=== PATIENT | male | born 1965 | race Caucasian/White ===

== ENCOUNTER 2017-09-29 09:53 | Outpatient (RCR) | payer MEDICAID, SELFPAY ==
--- NOTE | 2017-09-22 10:11 | NT_ITS ---
NON TREATMENT NOTE: 09/22/17 Patient called in to cancel today's appointment due to lack of a ride.
--- NOTE | 2017-09-29 10:38 | PTDS_ITS ---
Date: 09/29/17 Referring: Gage Thrasher MD Diagnosis: Back, shoulder, neck, and knee pain Subjective: Patient states that although he still is battling symptoms of neck pain, back pain, and shoulder pain that he feels like he has gotten his life back. He is back to working [employer] and making plans for the future. Objective: Treatment: Self care training (x1): Patient was guided through gentle ROM assessment utilizing the SFMA top tier assessment. He was noted to still have dysfunctional painful pattern through the cervical spine in all planes, Upper extremity 1 and upper extremity 2. Dysfunctional non painful patterns noted with Multisegmental rotation, multisegmental extension, and arms down deep squat. Patient was advised to continue to pursue his work advancement but be mindful of body cues that tell him to take a break. It is better to conserve and preserve energy and stamina then to follow a no pain no gain philosophy. Patient should continue to work on smoking cessation and stay well hydrated. Treatment time: 15 minutes of direct patient care. Assessment: Patient is doing incredibly well from his start point. He is back to [employer] work, is working on getting back to driving and is encouraged for the future for the first time in almost 2 years since his injury. He has completed all Physical therapy related goals at this time, and no further conservative Physical therapy treatment is indicated. Plan: Patient should continue to remain vigilant in his HEP. Discharge from formal Physical therapy at this point in time. cc. Gage Thrasher MD
== END 2017-10-09 23:59 | disposition home or self-care (01) ==
LOC: PT 09:53
PROVIDERS: PCP Family Medicine; Referring Provider Family Medicine; Visit Provider Family Medicine
DX: R29.898 Other symptoms and signs involving the musculoskeletal system (principal); G89.29 Other chronic pain; M54.9 Dorsalgia, unspecified; M25.512 Pain in left shoulder
CPT/HCPCS: 97535

== ENCOUNTER 2023-12-29 12:28 | Emergency (ER) | payer SELFPAY ==
[2023-12-29 12:32] VITALS: BP 148/101; PULSE 81; RESP 18; TEMP 36.8; O2SAT 98
[2023-12-29 13:33] VITALS: BP 165/112; PULSE 93; RESP 16; TEMP 36.8; O2SAT 98
--- NOTE | 2023-12-29 14:41 | ED.GENADUL_ITS ---
Discharge Plan Disposition Patient Disposition: Home Condition: Stable Discharge Details Clinical Impression: Dental infection, Impingement of right shoulder, Acute shoulder pain, Unavailability of medical care Primary Care Provider: Gage Dumont ED Provider: Jaida Cassidy Home Meds and New Rx's Prescriptions: New penicillin V potassium 250 mg tablet 250 mg PO TID 7 Days Qty: 21 0RF Continued acetaminophen [Tylenol] 325 MG tablet 650 mg PO Q6H PRN ibuprofen 600 MG tablet 600 mg PO Q6H PRN Discharge Instructions Instructions: Dental Pain ED, Shoulder Pain ED Additional Instructions: As we discussed, you need to establish a health insurance as well as primary care provider. I have asked our care management team to ensure that you have prompted follow-up with primary care when she established health insurance. They will be able to monitor your known aortic aneurysms as well as other chronic issues. I am worried that your blood pressures not being treated, you have had weight loss, aneurysms that are not being monitored. However, I do not believe that these are an emergent issue today and an effort to keep costs low, will hold off on further evaluation of these currently as we can have a plan for closer follow-up I am worried about your teeth and have prescribed you penicillin, this is available at your preferred pharmacy. Please take as directed. Even if symptoms improve, please take the entire course. Please continue to encourage hydration. Tylenol and ibuprofen as needed for discomfort. Please take as directed on the packaging. In Regard to the right shoulder pain, you declined an injection here today I am not see need for x-ray again, thinking of cost as well as how this would change her treatment moving forward. Likely see osteoarthritis but I do not have an indication to suggest fracture. More concern for impingement syndrome, possible rotator cuff injury. I would like for you to be evaluated by physical therapy. A referral for physical therapy is attached. You may contact them to discuss close follow-up as soon as you have insurance is able to cover this. If you develop increased abdominal pain, inability stay hydrated, chest pain, shortness of breath or evidence/worsening symptom please seek care urgently once again. For your chronic dental issues, you will need definitive care with a dentist, attached is a list of local dentists. Stand Alone Forms: Physical Therapy Referral Referrals: Gage Dumont [Primary Care Provider] - [facility] General Date/Time Provider Initiated Documentation: 12/29/23 14:03 . Limitations to Documentation: no limitations . Information obtained by: patient and RN notes reviewed . History of Present Illness 58 year old M presents to the emergency department with the chief complaint of lost to medical care, dental pain, weight loss, right shoulder pain, described as severe (shoulder pain severe), Quality is described as stabbing, and is localized to the mouth, right and upper extremity. Patient started experiencing this day(s) (shoulder) Movement worsens symptoms . R elated Data Home Medications ?Medication ?Instructions ?Recorded ?Confirmed acetaminophen 325 mg tablet 650 mg PO Q6H PRN 12/06/13 12/29/23 (Tylenol) ibuprofen 600 mg tablet 600 mg PO Q6H PRN 12/06/13 12/29/23 penicillin V potassium 250 mg 250 mg PO TID 7 days #21 tabs 12/29/23 tablet Previous Rx's ?Medication ?Instructions ?Recorded penicillin V potassium 250 mg 250 mg PO TID 7 days #21 tabs 12/29/23 tablet Allergies Allergy/AdvReac Type Severity Reaction Status Date / Time Iodinated Contrast Media Allergy Intermediate Skin Rash Verified 12/29/23 14:57 General Stated Complaint: [facility] [place]: 3 Review of Systems Constitutional Constitutional: Reports as per HPI, Denies chills, Denies fatigue, Denies headache(s) and Denies poor appetite Eyes Eyes: Denies change in vision and Denies irritation ENT Ears, Nose, Mouth, and Throat: Reports as per HPI, Reports dental pain, Denies dysphagia, Denies dizziness, Denies dry mouth, Denies headache(s), Denies hoarseness, Denies nasal congestion, Denies odynophagia and Denies sore throat Cardiovascular Cardiovascular: Reports as per HPI and Denies chest pain Respiratory Respiratory: Reports as per HPI and Denies cough Gastrointestinal Gastrointestinal: Reports as per HPI, Denies dysphagia and Denies odynophagia Integumentary/Breasts Skin/Breast: Reports as per HPI, Denies erythema, Denies rash and Denies skin pain Neurologic Neurologic: Reports as per HPI, Denies dizziness and Denies headache(s) Endocrine Endocrine: Denies fatigue Exam Const General: cooperative, healthy appearing, comfortable, no acute distress, well developed and well groomed Nutritional Appearance: average body habitus and well nourished Orientation: alert and awake [facility] Head: normal to inspection, normocephalic and atraumatic General nose exam: external nose normal and nares normal Face and sinus: normal facial exam, sinuses nontender and face symmetric Teeth and gingiva: abnormal tooth or associated gingiva (front lower tender along buccal side, no lingual pain), caries, gingiva abnormal and poor dentition Throat: posterior oropharynx normal, tonsils normal and uvula midline Eyes General: appearance normal, both eyes and all related structures Neck Neck: normal visual inspection, full ROM, no lymphadenopathy, supple and no anterior neck swelling Resp Effort & Inspection: normal respiratory effort, able to speak in complete sentences and no respiratory distress Auscultation: clear to auscultation bilaterally, no rales, no rhonchi and no wheezes Cardio Rate: regular rate Rhythm: regular rhythm Heart Sounds: S1 normal and S2 normal GI Inspection: normal to inspection Palpation: soft, no hepatosplenomegaly, no guarding, pulsatile mass (slightly widened aorta), nontender and No ascites Skin General skin exam: no rashes or lesions noted Trauma: no lacerations or abrasions Neuro General: patient alert and patient awake Cognition: normal cognition Speech: speech normal Gait: normal gait Extrem Shoulder/upper arm images: 2 1. area of maximal pain. FE limited to 90, ER and IR full but tender. Positive empty can. Full ROM of elbow, wrist, hand. 5/5 strength in these areas. 2+ distal pulses. Sensation intact. Axillary nerve testing intact. No swelling, ecchyomsis or evidence of trauma Course Vital Signs Vital signs: Vital Signs Temperature 36.8 C 12/29/23 12:32 Pulse 81 12/29/23 12:32 Respiratory Rate 18 12/29/23 12:32 Blood Pressure 148/101 H 12/29/23 12:32 Pulse Oximetry 98 12/29/23 12:32 Temperature 36.8 C 12/29/23 13:33 Temperature Source Oral 12/29/23 13:33 Pulse 93 H 12/29/23 13:33 Respiratory Rate 16 12/29/23 13:33 Blood Pressure 165/112 H 12/29/23 13:33 Blood Pressure Position Sitting 12/29/23 12:32 Pulse Oximetry 98 12/29/23 13:33 Oxygen Delivery Method Room Air 12/29/23 13:33 Oxygen Flow Rate 0 12/29/23 13:33 Medical Decision Making Patient is a pleasant 58 year old male presenting with a multitude of both acute and chronic medical complaints. Acutely, the patient's been having dental pain particularly in the lower aspect that has been worsening. He reports that he has had recurrent abscesses and these typically open and drain on their own. He has known poor dentition and does not have dental insurance. Seen by dentist 2 years ago at which time some teeth were pulled but does not have routine care based on limited access as well as expense and he pays [id number]. Patient also is concerned about right shoulder pain which began acutely a few days ago. Patient is a manual labor, works building homes and had sudden onset of severe pain on waking last . He believes this pain was associated with increased activity level recently but only began few days ago. Now having difficulty with forward elevation. Patient also reports that he has a known AAA but as he has been lost to follow-up has not had health insurance, he has not been able to have this monitored. Last known size was 3.5 cm and that had been stable from imaging prior. Previous imaging has been done at [facility]. Patient has also had weight loss, unclear origin. Patient is a chronic smoker and cut back recently from 2 packs to 1-1/2 packs. Patient also smokes marijuana daily. He reports that he has recurrent bouts of painful emesis that will then last for a few days. He is not actively having pain at this time. On exam, patient appears nontoxic. He is hemodynamically stable. He has 2+ distal pulses in all of his extremities. Exam of the abdomen shows slightly widened abdominal aorta but this is nontender and does not appear to be significantly enlarged or have any pain to suggest rupture. His blood pressure is typically in the 130s based on patient's documentation. He has been checking this daily. Patient has poor dentition and is largely edentulous. He is tender and has irritation of the gumline in the front lower teeth. He does have a small area of swelling that is most consistent with a ruptured abscess. He does report that he did have a large amount of fluid come from this recently. No swelling along the lingual side, no swelling under the tongue to suggest Josef's. He has forage motion of the TMJ, no trismus. Posterior oropharynx is normal. Patient is normal cardiac exam, lungs are clear. Exam of the right upper extremity reveals the shoulder to be tender at the subacromial space. He has pain with forward elevation and limited range of motion in movement. He has forage motion of the elbow, wrist, hand. 2+ distal pulses. Axillary nerve another sensation is intact. Positive empty can testing. His history exam is most consistent with impingement syndrome. 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 No acute findings with this. Regard to the acute on chronic dental pain, will treat with oral antibiotics. Give list of local dentist. Patient is already trying to establish insurance and has information for community connections and plans to reach out to them. He was given list of dentist and is aware that he needs to seek definitive care with them as well. Patient also encouraged to follow-up with primary care and as he has not been seen in several years I have asked our care managers to assist in establishing this. Regard to the patient's shoulder, we did discuss x-ray or imaging but as he did not have any acute recent trauma I do not have indication at this point to suggest fracture or significant bony abnormality. I would not be surprised the patient did have arthritis given what he is done for the past several years is manual labor. However, as he is not currently insured if he to have a large bill without this changing his outcome or plan. He and I did discuss the possibility of subacromial injection and patient declined any medication or formers suitable intervention at this point. He is agreeable to referral for physical therapy which she will be able to start once he establishes his health insurance. We did discuss supportive care at home. Patient's known aortic aneurysms do not seem to have any emergent pathology at this point, no pain to his back, tearing pain, persistent abdominal pain or back pain and did sound to be stable prior to today's visit. Again, we discussed potential for imaging but as he is not currently insured we will hold off and encourage his primary care to have proper evaluation of this and appropriate follow-up if necessary. Patient I did discuss the concerns with this diagnosis and he is wanting to continue with his engagement in his medical care. Patient has had weight loss. While largely unintentional, he does correlate this as well with the change in his job and eating habits which may correspond with his weight loss. However, given his long smoking history I did consider cancerous etiology and encouraged him to discuss this further with primary care. He is not having any night sweats. I did encourage smoking cessation but primary goal at this time is to establish insurance and access to care. In regard to the patient's recurrent abdominal pain with vomiting that is relieved with warm soaks, I am concerned that this is most clinically correlated with cannabinoid induced hyperemesis. Patient does smoke 3 joints daily and has done so since he was a teenager. We did discuss smoking cessation but as this does help to manage several other symptoms for the patient he is hesitant to do so until another plan can be set in place by primary care. He will consider smoking cessation of both marijuana and cigarettes. Again, he does not have any pain or persistent emesis, it is tolerating food and fluids well so we will hold off on any further emergent evaluation of this. Overall, patient needs insurance and primary care follow-up as well as dental follow-up. Appropriate information for this and referrals have been placed. Return precautions were discussed. He is aware that if anything happens emergently he is able to return anytime with or without insurance for continued management. However, in an effort to keep [place] for the patient, hold off on any further diagnostics or therapeutic interventions today. All of his questions and concerns were addressed and patient is in agreement this plan. This documentation was generated using [employer] dictation system, please disregard any oddities of phrase or misspellings. Quality:SDOH Health Related Social Needs: 2 No Data to Display PFSH All Active Problems (Updated 12/29/23 @ 15:07 by AMY Choi) Unavailability of medical care (Acute) Acute shoulder pain (Acute) Impingement of right shoulder (Acute) Dental infection (Acute) Social History Smoking/Tobacco Use Status: Current every day Smoking risk assessment performed?: Yes Drug use: Daily Substance use type: marijuana Do you feel safe at home: Yes Do you feel safe in your relationship?: Yes
[2023-12-29 14:58] VITALS: BP 124/92; PULSE 90; RESP 18; TEMP 36.8; O2SAT 92
[2023-12-29 15:17] VITALS: BP 143/93; PULSE 72; RESP 18; TEMP 36.7; O2SAT 97
[2023-12-29 15:27] VITALS: BP 143/93; PULSE 72; RESP 18; TEMP 36.7; O2SAT 97
== END 2023-12-29 15:27 | disposition home or self-care (01) ==
PROVIDERS: Emergency Provider Physician Assistant; PCP Family Medicine
DX: M25.511 Pain in right shoulder (principal); M25.811 Other specified joint disorders, right shoulder; R68.84 Jaw pain; K04.7 Periapical abscess without sinus; Z75.9 Unspecified problem related to medical facilities and other health care; Z86.79 Personal history of other diseases of the circulatory system; F17.200 Nicotine dependence, unspecified, uncomplicated
CPT/HCPCS: 99283